=== PATIENT | female | born 1990 | race African-American/Black ===

== ENCOUNTER → 2019-11-20 | Outpatient (CLI) | payer BC ==
--- NOTE | 2019-11-20 10:35 | RADIOLOGY REPORT (SQ) ---
EXAM DESCRIPTION: CHEST PA/LATERAL IMAGES COMPLETED DATE/TIME: 11/20/2019 10:19 am REASON FOR STUDY: COUGH COMPARISON: None. TECHNIQUE: Frontal and lateral radiographic views of the chest acquired. NUMBER OF VIEWS: Two view. LIMITATIONS: None. FINDINGS: LUNGS AND PLEURA: No opacities, masses or pneumothorax. No pleural effusion. MEDIASTINUM AND HILAR STRUCTURES: No masses or contour abnormalities. HEART AND VASCULAR STRUCTURES: Heart normal size. No evidence for failure. BONES: No acute findings. HARDWARE: None in the chest. OTHER: No other significant finding. IMPRESSION: NO SIGNIFICANT RADIOGRAPHIC FINDING IN THE CHEST. TECHNICAL DOCUMENTATION: JOB ID: [id number] 2010 [employer]- All Rights Reserved Reading location - IP/workstation name: [email or web address]
== END ==
LOC: OD 10:08
PROVIDERS: ATTEND Physician Assistant
DX: R05 Cough (principal)
CPT/HCPCS: 71046

== ENCOUNTER → 2020-08-16 | Outpatient (CLI) | payer BC ==
--- NOTE | 2020-08-16 09:45 | RADIOLOGY REPORT (SQ) ---
EXAM DESCRIPTION: MANDIBLE 4 VIEWS OR MORE IMAGES COMPLETED DATE/TIME: 08/16/2020 9:09 am REASON FOR STUDY: (R68.84)JAW PAIN R68.84 JAW PAIN COMPARISON: None. NUMBER OF VIEWS: Four view. TECHNIQUE: Images of the mandible acquired. AP, Dereck's, angled right, angled left mandible images. LIMITATIONS: None. FINDINGS: MANDIBLE: No acute fracture. No disruption of the right or left temporomandibular joints. ORBITS: No fracture. No foreign body. SINUSES: No mucosal thickening. No air fluid levels. FACIAL BONES: No fracture. OTHER: No other significant finding. IMPRESSION: NO ACUTE FRACTURE OR MALALIGNMENT. TECHNICAL DOCUMENTATION: JOB ID: [id number] 2010 [employer]- All Rights Reserved Reading location - IP/workstation name: [email or web address]
== END ==
LOC: RAD 08:48
PROVIDERS: ATTEND Nurse Practitioner Family
DX: R68.84 Jaw pain (principal)
CPT/HCPCS: 70110

== ENCOUNTER → 2020-08-18 | Outpatient (CLI) | payer BC ==
[2020-08-18 11:54] LABS: ABSOLUTE EOSINOPHILS # (AUTO) 0.2 10^3/uL (0.0-0.6); ABSOLUTE LYMPHOCYTES (AUTO) 1.4 10^3/uL (0.5-4.7); ABSOLUTE MONOCYTES (AUTO) 0.4 10^3/uL (0.1-1.4); ABSOLUTE NEUT (AUTO) 2.9 10^3/uL (1.7-8.2); BASOPHILS % (AUTO) 0.6 % (0-2); EOSINOPHILS % (AUTO) 3.2 % (0-6); HEMATOCRIT 35.2 % (36.0-47.0); HEMOGLOBIN 11.5 g/dL (12.0-15.5); LYMPHOCYTES % (AUTO) 28.9 % (13-45); MEAN CORPUSCULAR HEMOGLOBIN 26.4 pg (27.0-33.4); MEAN CORPUSCULAR HGB CONC 32.6 g/dL (32.0-36.0); MEAN CORPUSCULAR VOLUME 81 fl (80-97); PLATELET COUNT 380 10^3/uL (150-450); RED BLOOD COUNT 4.36 10^6/uL (3.72-5.28); SEGMENTED NEUTROPHILS % (AUTO) 59.3 % (42-78); TOTAL CELLS COUNTED % (AUTO) 100 %; WHITE BLOOD COUNT 4.8 10^3/uL (4.0-10.5)
[2020-08-18 11:59] LABS: APPEARANCE,URINE SLIGHTLY-CLOUDY; BILIRUBIN,URINE NEGATIVE (NEGATIVE); COLOR,URINE YELLOW; GLUCOSE, URINE NEGATIVE (NEGATIVE); KETONES,URINE TRACE mg/dL (NEGATIVE); LEUKOCYTE ESTERASE,URINE SMALL (NEGATIVE); NITRITE,URINE NEGATIVE (NEGATIVE); PROTEIN,URINE 30 mg/dL (NEGATIVE); URINE SPECIFIC GRAVITY 1.031; UROBILINOGEN,URINE NEGATIVE mg/dL (<2.0)
[2020-08-18 12:17] LABS: ALBUMIN 4.3 g/dL (3.5-5.0); ALKALINE PHOSPHATASE 79 U/L (38-126); ANION GAP 10 (5-19); ASPARTATE AMINO TRANSFERASE 23 U/L (14-36); BILIRUBIN,DIRECT 0.1 mg/dL (0.0-0.4); BILIRUBIN,TOTAL 0.5 mg/dL (0.2-1.3); BLOOD UREA NITROGEN 13 mg/dL (7-20); CALCIUM 9.8 mg/dL (8.4-10.2); CARBON DIOXIDE 26 mmol/L (22-30); CHLORIDE 104 mmol/L (98-107); CHOLESTEROL 141.11 mg/dL (0-200); GLUCOSE 92 mg/dL (75-110); POTASSIUM 4.2 mmol/L (3.6-5.0); TOTAL PROTEIN 7.6 g/dL (6.3-8.2); TRIGLYCERIDES 55 mg/dL (<150)
[2020-08-18 12:29] LABS: DIRECT LDL 78 mg/dL (<100)
--- NOTE | 2020-08-18 19:36 | EKG REPORT ---
SEVERITY:- BORDERLINE ECG - SINUS TACHYCARDIA BORDERLINE T ABNORMALITIES, DIFFUSE LEADS : Confirmed by: Nithin Chanel MD 18-Aug-2020 19:36:11
== END ==
LOC: OD 10:52
PROVIDERS: ATTEND Nurse Practitioner Family
DX: R68.84 Jaw pain (principal); R00.0 Tachycardia, unspecified; R03.0 Elevated blood-pressure reading, without diagnosis of hypertension
CPT/HCPCS: 36415; 80053; 80061; 81001; 84443; 85025; 93005; 93010